=== PATIENT | female | born 1990 | race Caucasian/White ===

== ENCOUNTER 2019-04-08 21:52 | Inpatient (IN) ==
[2019-04-08 20:36] LABS: Amphetamine Screen,Urine Negative ng/mL (Cutoff=1000); Barbiturate Screen,Urine Negative ng/mL (Cutoff=200); Benzodiazepines Screen,Urine Negative ng/mL (Cutoff=200); Cannabinoid Screen,Urine Negative ng/mL (Cutoff = 50); Cocaine Screen,Urine Negative ng/mL (Cutoff= 300); Opiate Screen,Urine Negative ng/mL (Cutoff=300); Phencyclidine Screen,Urine Negative ng/mL (Cutoff=25)
[2019-04-08] MEDS: Ringers Solution, Lactated 1,000 ML IVC SCH (21:35)
[2019-04-08 21:41] LABS: Basophils % 0.3 %; Eosinophils % 0.1 %; Hematocrit 43.1 % (35.3-44.9); Hemoglobin 15.4 g/dL (11.5-15.4); Immature Granulocytes % 0.5 % (0-4); Lymphocytes % 14.5 %; Mean Corpuscular HGB Conc 35.7 g/dL (31.6-35.5); Mean Corpuscular Volume 95.1 fL (83.0-100.0); Mean Platelet Volume 12.6 fL (9.4-12.4); Monocytes # 0.9 K/mcL (0.0-1.3); Monocytes % 6.2 %; Platelet Count 142 K/mcL (140-400); Red Blood Count 4.53 M/mcL (3.82-4.97); Red Cell Distribution Width 13.2 % (11.5-14.5); Segmented Neutrophils % 78.4 %; White Blood Count 14.1 K/mcL (4.3-11.1)
[~2019-04-08 21:52] MED LIST: *HR* Nalbuphine 10 MG/ML AMPUL IVP PRN; Epidural Premix (fent/bupiv) 110 ML EP SCH; Famotidine 20 MG/2 ML VIAL IVP PRN; Lidocaine 1% 20 ML MDV INFILT PRN; Metoclopramide 10 MG/2 ML VIAL IVP PRN; Naloxone 0.4 MG/ML INJ IVP PRN; Ondansetron 4 MG/2 ML VIAL IVP PRN; Penicillin G Potassium 5,000,000 UNIT in 0.9 % Sodium Chloride Mini Bag 100 ML IVPB ONE
[2019-04-08] MEDS ORDERED: *HR* FentaNYL (PF) 100 MCG/2 ML VIAL ONE (21:58)
[2019-04-08] MEDS ORDERED: Bupivacaine/EPI 1:200k 0.25%PF 10 ML VIAL INFILT ONE (21:59)
[2019-04-09] MEDS ORDERED: Penicillin G Potassium 2,500,000 UNIT in 0.9 % Sodium Chloride 100 ML IVPB SCH (01:30)
[2019-04-09] MEDS: Ringers Solution, Lactated 1,000 ML IVC SCH (01:45)
[2019-04-09] MEDS ORDERED: Oxytocin 20 units/ LR 1000 mL 20 UNIT/1,000 ML BAG IVC ONE ×2 (04:13→06:59)
[2019-04-09] MEDS ORDERED: Lanolin 7 G OINT...G. TP PRN (08:24)
[2019-04-09] MEDS ORDERED: Benzocaine/Menthol 56 GM AEROSOL SPRAY TP PRN (08:24)
[2019-04-09] MEDS ORDERED: Rho Immune Globulin 1,500 UNIT SYRINGE IM PRN (08:24)
[2019-04-09] MEDS ORDERED: Acetaminophen 325 MG TABLET PO PRN (08:24)
[2019-04-09] MEDS ORDERED: Oxytocin 20 units/ LR 1000 mL 20 UNIT/1,000 ML BAG IVC SCH (08:24)
[2019-04-09] MEDS: Prenatal Vit/FA 1 EACH TABLET PO SCH (09:02)
[2019-04-09] MEDS: Ibuprofen 600 MG TABLET PO PRN ×2 (09:02→20:05)
[2019-04-10] MEDS: Ibuprofen 600 MG TABLET PO PRN (07:50)
[2019-04-10] MEDS: Prenatal Vit/FA 1 EACH TABLET PO SCH (07:50)
[2019-04-10 08:07] VITALS: BP 120/77
[2019-04-10 08:32] LABS: Basophils % 0.3 %; Eosinophils # 0.1 K/mcL (0.0-0.6); Eosinophils % 0.5 %; Hematocrit 37.9 % (35.3-44.9); Immature Granulocytes % 0.4 % (0-4); Lymphocytes # 2.4 K/mcL (0.6-4.6); Lymphocytes % 17.2 %; Mean Corpuscular Hemoglobin 33.9 pg (28.0-33.3); Mean Corpuscular Volume 99.7 fL (83.0-100.0); Mean Platelet Volume 12.1 fL (9.4-12.4); Monocytes # 0.8 K/mcL (0.0-1.3); Monocytes % 5.8 %; Neutrophils # 10.5 K/mcL (1.6-8.9); Platelet Count 129 K/mcL (140-400); Red Cell Distribution Width 13.6 % (11.5-14.5); Segmented Neutrophils % 75.8 %; White Blood Count 13.8 K/mcL (4.3-11.1)
[2019-04-10 08:34] LABS: Hemoglobin 12.9 g/dL (11.5-15.4)
== END 2019-04-10 11:24 | disposition home or self-care (01) | DRG 807 ==
LOC: 1NENULAB → 1NENUOBS 04-09 08:14
PROVIDERS: ADMIT Advanced Practice Midwife; ATTEND Advanced Practice Midwife

== ENCOUNTER 2021-06-18 08:00 | Inpatient (IN) ==
[2021-06-26] MEDS ORDERED: Naloxone 0.4 MG/ML INJ IVP PRN (08:39)
[2021-06-26] MEDS ORDERED: Metoclopramide 10 MG/2 ML VIAL IVP PRN (08:39)
[2021-06-26] MEDS ORDERED: *HR* Nalbuphine 10 MG/ML AMPUL IV PRN (08:39)
[2021-06-26] MEDS ORDERED: Azithromycin 500 MG in 0.9 % Sodium Chloride 250 ML IVPB PRN (08:39)
[2021-06-26] MEDS ORDERED: Ondansetron 4 MG/2 ML VIAL IVP PRN (08:39)
[2021-06-26] MEDS ORDERED: Famotidine 20 MG/2 ML VIAL IVP PRN (08:39)
[2021-06-26] MEDS ORDERED: Oxytocin 30 UNIT/503 ML BAG IVC SCH ×2 (08:45→17:26)
[2021-06-26] MEDS ORDERED: Ropivacaine/PF 0.2% 20 ML VIAL EP ONE (09:13)
[2021-06-26] MEDS ORDERED: EPHEDrine 50 MG/ML VIAL IVP PRN (09:13)
[2021-06-26] MEDS ORDERED: *HR* FentaNYL (PF) 100 MCG/2 ML VIAL EP ONE (09:13)
[2021-06-26] MEDS ORDERED: Epidural Premix (fent/bupiv) 110 ML EP SCH (09:15)
[2021-06-26] MEDS ORDERED: Penicillin G Potassium 5,000,000 UNIT in 0.9 % Sodium Chloride Mini Bag 100 ML IVPB ONE (09:15)
[2021-06-26] MEDS: Ringers Solution, Lactated 1,000 ML IVC SCH ×2 (09:35→13:39)
[2021-06-26 11:12] LABS: Basophils % 0.3 %; Eosinophils # 0.1 K/mcL (0.0-0.6); Eosinophils % 0.6 %; Hematocrit 41.5 % (35.3-44.9); Hemoglobin 14.5 g/dL (11.5-15.4); Immature Granulocytes % 0.7 % (0-4); Lymphocytes # 1.8 K/mcL (0.6-4.6); Lymphocytes % 16.6 %; Mean Corpuscular HGB Conc 34.9 g/dL (31.6-35.5); Mean Corpuscular Hemoglobin 33.9 pg (28.0-33.3); Monocytes # 0.6 K/mcL (0.0-1.3); Monocytes % 5.9 %; Neutrophils # 8.3 K/mcL (1.6-8.9); Platelet Count 154 K/mcL (140-400); Red Blood Count 4.28 M/mcL (3.82-4.97); Red Cell Distribution Width 13.7 % (11.5-14.5); Segmented Neutrophils % 75.9 %; White Blood Count 10.9 K/mcL (4.3-11.1)
[2021-06-26 11:13] LABS: Amphetamine Screen,Urine Negative ng/mL (Cutoff=1000); Barbiturate Screen,Urine Negative ng/mL (Cutoff=200); Benzodiazepines Screen,Urine Negative ng/mL (Cutoff=200); Cannabinoid Screen,Urine Negative ng/mL (Cutoff = 50); Cocaine Screen,Urine Negative ng/mL (Cutoff= 300); Opiate Screen,Urine Negative ng/mL (Cutoff=300); Phencyclidine Screen,Urine Negative ng/mL (Cutoff=25)
[2021-06-26] MEDS ORDERED: *HR* FentaNYL (PF) 100 MCG/2 ML VIAL ONE (12:10)
[2021-06-26] MEDS ORDERED: Ropivacaine/PF 0.2% 20 ML VIAL ONE (12:10)
[2021-06-26] MEDS ORDERED: *HR* Phenylephrine 10 MG/ML VIAL ONE (12:11)
[2021-06-26] MEDS ORDERED: Penicillin G Potassium 2,500,000 UNIT/105 ML MLS IVPB SCH (13:15)
[2021-06-26] MEDS ORDERED: Rho Immune Globulin 1,500 UNIT SYRINGE IM PRN (17:26)
[2021-06-26] MEDS ORDERED: Benzocaine/Menthol 56 GM AEROSOL SPRAY TP PRN (17:26)
[2021-06-26] MEDS ORDERED: Ondansetron ODT 4 MG TAB.RAPDIS SL PRN (17:26)
[2021-06-26] MEDS ORDERED: Lanolin 7 G OINT...G. TP PRN (17:26)
[2021-06-26] MEDS: Ibuprofen 600 MG TABLET PO SCH (21:48)
[2021-06-26] MEDS: Acetaminophen 325 MG TABLET PO SCH (21:49)
[2021-06-27] MEDS: Acetaminophen 325 MG TABLET PO SCH (04:29)
[2021-06-27] MEDS: Ibuprofen 600 MG TABLET PO SCH (04:29)
[2021-06-27 04:36] VITALS: O2SAT 99
[2021-06-27 07:07] VITALS: BP 108/75; PULSE 80; TEMP 98.2
[2021-06-27] MEDS ORDERED: Prenatal Vit/FA 1 EACH TABLET PO SCH (09:00)
== END 2021-06-27 15:15 | disposition home or self-care (01) | DRG 807 ==
LOC: 1NENULAB 06-26 07:56 → 1NENUOBS 06-26 17:16
PROVIDERS: ADMIT Obstetrics & Gynecology; ATTEND Obstetrics & Gynecology